=== PATIENT | male | born 1945 ===

== ENCOUNTER 2017-12-16 06:29 | Inpatient (IN) | payer MEDICARE, OTHER ==
[2017-12-16 06:44] VITALS: BMI 25.5
[2017-12-16] MEDS ORDERED: Absorbable Gelatin Sponge Size 12-7 ONE (07:07)
[2017-12-16] MEDS ORDERED: Thrombin Topical 5,000 Int Units Spray Kit ONE (07:08)
[2017-12-16] MEDS ORDERED: Lidocaine 2% w Epi 1:100,000 Inj IJ ONE (07:08)
[2017-12-16] MEDS ORDERED: Phenylephrine 10 mg/ml Inj ONE (07:11)
[2017-12-16] MEDS ORDERED: Succinylcholine 200 mg/10 ml Inj IV ONE (07:11)
[2017-12-16] MEDS ORDERED: Rocuronium 10 mg/ml (5 ml) ONE ×2 (07:11→08:44)
[2017-12-16] MEDS ORDERED: Etomidate 20 mg/10ml Inj IV ONE (07:11)
[2017-12-16] MEDS ORDERED: Lidocaine 4% (Laryng-O-Jet) Kit MM ONE (07:13)
[2017-12-16] MEDS ORDERED: Lactated Ringer's 1,000 ML IV ONE ×3 (07:23→11:00)
--- NOTE | 2017-12-16 07:28 | CP.PCM.HP ---
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 The patient c/o LBP that started spontaneously since this June 2017. Denies history of trauma and the LBP is exacerbated by movement and ambulation and associated with RLE radiculopathy from the buttock to anterior thigh as well as decreased sensation and parasthesias of that area. The patient attempted PT , accupuncture and po meds without relief. He has seen Dr. Cadena from pain management as well. 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 He denies bowel or bladder incontinence. POMAF done by Dr. Cuong Lorenzana. Present on Admission - Present on Admission Any Indicators Present on Admission: No Review of Systems - Neurological Neurological: As Per HPI Past Patient History - Past Medical History & Family History Past Medical History?: Yes - Past Social History Smoking Status: Never Smoked - CARDIAC Hx Cardiac Disorders: Yes Hx Hypertension: Yes - PULMONARY Hx Respiratory Disorders: No - NEUROLOGICAL Hx Neurological Disorder: No - HEENT Hx HEENT Problems: No - RENAL Hx Chronic Kidney Disease: No - ENDOCRINE/METABOLIC Hx Endocrine Disorders: No - HEMATOLOGICAL/ONCOLOGICAL Hx Blood Disorders: No - INTEGUMENTARY Hx Dermatological Problems: No - MUSCULOSKELETAL/RHEUMATOLOGICAL Hx Musculoskeletal Disorders: Yes Hx Arthritis: Yes - GASTROINTESTINAL Hx Gastrointestinal Disorders: No - GENITOURINARY/GYNECOLOGICAL Hx Genitourinary Disorders: No - PSYCHIATRIC Hx Psychophysiologic Disorder: No - SURGICAL HISTORY Hx Surgeries: Yes Hx Cholecystectomy: Yes - ANESTHESIA Hx Anesthesia: Yes Hx Anesthesia Reactions: No Meds Allergies/Adverse Reactions: Allergies Allergy/AdvReac Type Severity Reaction Status Date / Time No Known Allergies Allergy Verified 12/16/17 06:44 Physical Exam - Back Exam Back exam: NORMAL INSPECTION - Neurological Exam Additional comments: A&Ox3 CN intact speech appropriate ARCE RLE IP and HS: 4+/5 , rest of motor is 5/5 . Pain illicited with efforts. positive SLR on right mild decreased sensation on right anterior thigh. neg clonus Results - Vital Signs Recent Vital Signs: Last Vital Signs Temp 99.3 F 12/16/17 07:15 Pulse 73 12/16/17 07:17 Resp 20 12/16/17 07:15 BP 165/73 H 12/16/17 07:15 Pulse Ox 96 12/16/17 07:15 - Imaging and Cardiology MRI L spine Status: Image reviewed by me Assessment & Plan - Assessment and Plan (Free Text) Assessment: Lumbar spondylolithesis Plan: Images reviewed discussion with patient, explained pathology Dr. Gallagher reviewed the risks, benefits and alternatives to surgery Risks such as infection, hemorrhage, CSF leak, weakness, sensory changes, failure of surgery and /or need for further surgery explained. All questions answered, patient expressed understanding and agrees with proposed procedure. Will be admitted post op either to Dr. Lorenzana( his PCP) or Dr. Mae service.
[2017-12-16] MEDS ORDERED: Midazolam 2 MG/2 ML VIAL ONE (07:54)
[2017-12-16 08:05] LABS: HEMOGLOBIN 14.4 g/dL (12.0-18.0); MEAN CELL VOLUME 88.3 fl (80.0-94.0); MEAN CORPUSCULAR HEMOGLOBIN 29.9 pg (27.0-31.0); MEAN CORPUSCULAR HGB CONC 33.9 g/dL (33.0-37.0); RBC 4.81 Mil/uL (4.40-5.90); RED CELL DISTRIBUTION WIDTH 14.7 % (11.5-14.5); WHITE BLOOD COUNT 5.7 K/uL (4.8-10.8)
[2017-12-16] MEDS ORDERED: Lidocaine 2% w Epi 1:200,000 Pf Inj IJ ONE (08:15)
[2017-12-16] MEDS ORDERED: Dexamethasone 4 mg/1 ml ONE (08:17)
[2017-12-16] MEDS ORDERED: Bupivacaine HCl 0.25% PF (30 ml) Inj ONE (08:39)
[2017-12-16] MEDS ORDERED: Neostigmine 1:1000 (1 mg/ml) Inj ONE (08:47)
[2017-12-16] MEDS ORDERED: Thrombin Topical 5,000 Int Units Spray Kit TOP ONE ×2 (08:49→10:25)
[2017-12-16] MEDS ORDERED: HEMOSTATIC MATRIX 10 ML DIS.NEEDLE TOP ONE ×3 (08:49→10:20)
[2017-12-16] MEDS ORDERED: Absorbable Gelatin Sponge Size 12-7 TP ONE ×2 (08:50→10:20)
[2017-12-16] MEDS ORDERED: ceFAZolin 1 GM in Sodium Chloride 0.9% 100 ML IVPB SCH (09:00)
[2017-12-16] MEDS ORDERED: APROTININ/FIBRINOGEN(TISSEEL) ONE (09:30)
[2017-12-16] MEDS ORDERED: Lactated Ringer's 500 ML IV ONE (09:45)
[2017-12-16] MEDS ORDERED: ePHEDrine 50 mg/ml Inj ONE (10:05)
[2017-12-16] MEDS ORDERED: HYDROmorphone 0.5 mg/0.5 ml ISec IVP PRN (11:10)
[2017-12-16] MEDS ORDERED: Naloxone 0.4 mg/ml Inj (Adult) IVP PRN (11:11)
[2017-12-16] MEDS ORDERED: Lactated Ringer's 1,000 ML IV SCH (11:15)
--- NOTE | 2017-12-16 11:45 | PCM.SURG1 ---
Surgeon's Initial Post Op Note - Surgeon's Notes Surgeon: Rudolph Gallagher MD Chip Separator: Augustus BROWN Type of Anesthesia: General Endo Anesthesia Administered By: Sandra NEAL Pre-Operative Diagnosis: Lumbar spondylolithesis Operative Findings: degenerative changes, scoliotic, spinal canal stenosis and thecal sac compression Post-Operative Diagnosis: same Operation Performed: Bilateral L3-L4, L4-L5 laminectomy and posterior instrumented fusion Specimen/Specimens Removed: none Estimated Blood Loss: EBL {In ML}: 400 Blood Products Given: N/A Drains Used: Malik Shelby (x1 ) Post-Op Condition: Good Date of Surgery/Procedure: 12/16/17 Time of Surgery/Procedure: 11:00
--- NOTE | 2017-12-16 15:26 | CP.PCM.HP ---
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 Post-surgery this after, patient reports pain is controlled with pain medications. Denies any chest pain, dyspnea, nausea, vomiting, focal weakness, numbness or tingling of lower leg. ROS: all systems reviewed and negative except as mentioned in HPI PMHX: prediabetes, HTN, lower back pain PSHX: lap cholecystectomy, lower back surgery Social hx: Denies smoking cigarettes, drinking alcohol or using drugs. Family hx: denies Medications: Metformin 500 mg po hs, Valsartan 80 mg po, aspirin 81 mg po. Allergies: NKDA Present on Admission - Present on Admission Any Indicators Present on Admission: No Review of Systems - Review of Systems All systems: reviewed and no additional remarkable complaints except Past Patient History - Past Medical History & Family History Past Medical History?: Yes - Past Social History Smoking Status: Never Smoked - CARDIAC Hx Cardiac Disorders: Yes Hx Hypertension: Yes - PULMONARY Hx Respiratory Disorders: No - NEUROLOGICAL Hx Neurological Disorder: No - HEENT Hx HEENT Problems: No - RENAL Hx Chronic Kidney Disease: No - ENDOCRINE/METABOLIC Hx Endocrine Disorders: No - HEMATOLOGICAL/ONCOLOGICAL Hx Blood Disorders: No - INTEGUMENTARY Hx Dermatological Problems: No - MUSCULOSKELETAL/RHEUMATOLOGICAL Hx Musculoskeletal Disorders: Yes Hx Arthritis: Yes - GASTROINTESTINAL Hx Gastrointestinal Disorders: No - GENITOURINARY/GYNECOLOGICAL Hx Genitourinary Disorders: No - PSYCHIATRIC Hx Psychophysiologic Disorder: No - SURGICAL HISTORY Hx Surgeries: Yes Hx Cholecystectomy: Yes - ANESTHESIA Hx Anesthesia: Yes Hx Anesthesia Reactions: No Meds Allergies/Adverse Reactions: Allergies Allergy/AdvReac Type Severity Reaction Status Date / Time No Known Allergies Allergy Verified 12/16/17 06:44 Physical Exam - Constitutional Appears: Well, No Acute Distress - Head Exam Head Exam: ATRAUMATIC, NORMOCEPHALIC - Eye Exam Eye Exam: EOMI, Normal appearance - ENT Exam ENT Exam: Mucous Membranes Moist - Respiratory Exam Respiratory Exam: Clear to Auscultation Bilateral, NORMAL BREATHING PATTERN. absent: Rhonchi, Wheezes - Cardiovascular Exam Cardiovascular Exam: REGULAR RHYTHM, RRR, +S1, +S2 - GI/Abdominal Exam GI & Abdominal Exam: Normal Bowel Sounds, Soft. absent: Tenderness - Extremities Exam Extremities exam: Positive for: normal inspection. Negative for: calf tenderness - Neurological Exam Neurological exam: Alert, Oriented x3 - Psychiatric Exam Psychiatric exam: Normal Affect, Normal Mood - Skin Skin Exam: Normal Color, Warm Results - Vital Signs Recent Vital Signs: Last Vital Signs Temp 98.3 F 12/16/17 13:54 Pulse 70 12/16/17 13:54 Resp 18 12/16/17 13:54 BP 145/82 12/16/17 13:54 Pulse Ox 96 12/16/17 13:54 - Labs Result Diagrams: 12/16/17 07:36 Labs: Laboratory Results - last 24 hr 12/16/17 12/16/17 12/16/17 07:36 07:36 10:47 WBC 5.7 RBC 4.81 Hgb 14.4 Hct 42.5 MCV 88.3 MCH 29.9 MCHC 33.9 RDW 14.7 H Plt Count 178 Blood Type O POSITIVE Blood Type Confirm O POSITIVE Antibody Screen Negative BBK History Checked No verified bt Assessment & Plan - Assessment and Plan (Free Text) Assessment: Assessment: 72 yo male pmx of prediabetes, HTN and lower back pain had surgery of bilateral L3-L4, L4-L5 laminectomy and posterior instrumented fusion this morning. Patient is admitted for observation/monitoring after post op. Plan: Admit to Telemetry Pain management Resume BP medication (Dr. Harrington is aware of the recall and wants to continue with valsartan) Incentive spirometry advance diet as tolerated.
[2017-12-16] MEDS: ceFAZolin IV 1 gm in Dextrose 1 GM/50 ML BAG IVPB SCH (16:09)
[2017-12-16] MEDS: oxyCODONE 10 mg ER Tab (oxyCONTIN) PO SCH (18:36)
[2017-12-16] MEDS: Pantoprazole 40 mg EC Tab PO SCH (18:38)
--- NOTE | 2017-12-16 22:58 | OP ---
PROCEDURE DATE: 12/16/2017 PREOPERATIVE DIAGNOSIS: Lumbar spondylolisthesis and instability. POSTOPERATIVE DIAGNOSIS: Lumbar spondylolisthesis and instability. PROCEDURES: L3 to L5 lumbar laminectomy decompression, L3 to L5 pedicle screw fixation and instrumentation using a Spinal Elements system, L3 to L5 posterolateral fusion. SURGEON: Rudolph Gallagher MD. FIBER OPTICS ENGINEER: KEVIN Sparrow. Augustus Balbuena is a physician development assistant who helped me perform the surgery, he stayed throughout the case from the beginning to the end. DESCRIPTION OF PROCEDURE: The patient was brought to the operating room, anesthetized with general endotracheal anesthesia, and placed in a prone position on a Malik table. Care was taken to protect all the pressure points. Back of the lumbar area thoroughly prepped and draped in a sterile manner after marking the skin incisions for lumbar laminectomy and fusion. After prepping and draping the area, skin has been incised, bleeding skin has been controlled with bipolar plant operator. Using a Bovie plant operator, paraspinal muscles have been detached, attachments of spinous process and lamina of L3 to L5. Deep retractor has been applied. The patient has got significant scoliosis with exostosis of the bone and distortion of anatomy. All these exostoses have been drilled away on the facet and after identifying the landmark for the point of entry, initially a K-wire, later a drill has been used in order to enter the pedicles of L3, L4, L5 both sides. Polyaxial titanium screws of Spinal Element system have been placed. Position has been confirmed to be good with help of the fluoroscopy. Titanium rods have been placed, and cap nuts have been used in order to secure them. After that, under microscopic magnification and illumination, the spinous processes of L3, L4, L5 have been drilled and removed by using a high speed drill, the lamina of L3, L4, L5, and medial part of the facets have been drilled to actual thickness. By using a Kerrison punch, all this thinned out, bone has been removed, decompressing this area, along with removal of the ligamentum flavum which was found to be buckled and thickened and compressing. Once this has been done, the found to be expanded. After that, the lateral aspect of the facet joint and transverse process have been decorticated and demineralized bone placed in the area achieving a posterolateral fusion. After that, hemostasis was best achieved. Malik drain was placed in the wound and brought out through a separate stab neck skin incision. Muscles and fascia were closed with 1 Vicryl, subcutaneous tissue with 3-0 Vicryl, and skin with intradermal 3 Vicryl stitches. The patient tolerated the procedure. After the procedure was mobilized to the recovery room in stabilized condition. Rudolph Gallagher MD
[2017-12-17] MEDS: ceFAZolin IV 1 gm in Dextrose 1 GM/50 ML BAG IVPB SCH ×3 (00:31→16:51)
[2017-12-17 05:41] LABS: MEAN CELL VOLUME 88.9 fl (80.0-94.0); MEAN CORPUSCULAR HEMOGLOBIN 29.9 pg (27.0-31.0); MEAN CORPUSCULAR HGB CONC 33.7 g/dL (33.0-37.0); RBC 4.01 Mil/uL (4.40-5.90); RED CELL DISTRIBUTION WIDTH 14.4 % (11.5-14.5); WHITE BLOOD COUNT 8.2 K/uL (4.8-10.8)
[2017-12-17 05:44] LABS: BLOOD UREA NITROGEN 17 mg/dl (9-20); CALCIUM 8.6 mg/dL (8.4-10.2); GFR NON-AFRICAN AMERICAN > 60
[2017-12-17] MEDS ORDERED: Influenza Vaccine 60 MCG/0.5 ML SYR (3 yr & up) IM ONE (08:06)
--- NOTE | 2017-12-17 08:51 | CP.PCM.PN ---
Subjective - Date & Time of Evaluation Date of Evaluation: 12/17/17 Time of Evaluation: 07:20 - Subjective Subjective: Patient seen and examined at bedside. Pain is well controlled with IV Ofirmev, patient refusing narcotics at this time. Notes he is not experiencing numbness/tingling/pain radiating down LLE as he did preop. No acute events. Large amount of drainage from drain overnight. Denies CP/SOB/dizziness/fever. Objective - Vital Signs/Intake and Output Vital Signs (last 24 hours): Temp Pulse Resp BP Pulse Ox 98.2 F 61 20 129/72 98 12/17/17 08:33 12/17/17 08:33 12/17/17 08:33 12/17/17 08:33 12/17/17 08:33 Intake and Output: 12/17/17 12/17/17 06:59 18:59 Intake Total 1720 Output Total 300 Balance 1420 - Medications Medications: Current Medications Bacitracin (Bacitracin Oint) 1 applic TOP BID [facility] Cyclobenzaprine HCl (Flexeril) 5 mg PO Q8 [facility] Last Admin: 12/17/17 00:33 Dose: Not Given Hydromorphone HCl (Dilaudid 0.2 Mg/Ml Hall Monitor) 0 mg IV PRN PRN; Protocol PRN Reason: Pain, moderate (4-7) Last Admin: 12/16/17 12:50 Dose: 0 mg Cefazolin Sodium/Dextrose (Ancef Iv 1 Gm Duplex) 1 gm in 50 mls @ 50 mls/hr IVPB Q8 [facility]; Protocol Stop: 12/17/17 17:59 Last Admin: 12/17/17 00:31 Dose: 50 mls/hr Ibuprofen (Motrin Tab) 600 mg PO Q6 PRN PRN Reason: Pain, severe (8-10) Lidocaine (Lidoderm) 1 ea TD DAILY [facility] Naloxone HCl (Narcan) 0.1 mg IVP Q2M PRN PRN Reason: Shortness of Breath Ondansetron HCl (Zofran Inj) 4 mg IVP Q8 PRN PRN Reason: Nausea/Vomiting Last Admin: 12/16/17 16:36 Dose: 4 mg Oxycodone HCl (Oxycontin Extended Release Tab) 10 mg PO QPM [facility] Stop: 12/19/17 18:01 Last Admin: 12/16/17 18:36 Dose: Not Given Pantoprazole Sodium (Protonix Ec Tab) 40 mg PO DAILY [facility] Last Admin: 12/16/17 18:38 Dose: 40 mg Polyethylene Glycol (Miralax) 17 gm PO FRI [facility] Sennosides (Senokot Tab) 17.2 mg PO HS [facility] Last Admin: 12/17/17 00:44 Dose: Not Given Valsartan (Diovan) 80 mg PO DAILY [facility] - Labs Labs: 12/17/17 05:18 12/17/17 05:18 - Back Exam Additional comments: Dressings CDI BERNIE drain in place with 50 cc bloody drainage (200cc overnight, 100cc yesterday) sensation intact SP/DP/TN b/l motor intact EHL/FHL/TA/G b/l pedal pulses intact b/l comps soft NT b/l Assessment and Plan (1) HNP (herniated nucleus pulposus), lumbar Assessment & Plan: POD#1 s/p L3-L5 laminotomy with instrumental fusion doing well -recommend bedrest at this time until drainage subsides -will monitor drainage and remove when significantly decreased, does not look like CSF -hold PT/OT at this time, resume depending on drainage -pain control -above d/w Dr. Gallagher in agreement Status: Acute
[2017-12-17] MEDS: Bacitracin OINT 15GM TOP SCH ×2 (10:11→16:51)
[2017-12-17] MEDS: Pantoprazole 40 mg EC Tab PO SCH (10:15)
[2017-12-17] MEDS: Lidocaine 5% Patch TD SCH (10:24)
--- NOTE | 2017-12-17 11:57 | CP.PCM.PN ---
Subjective - Date & Time of Evaluation Date of Evaluation: 12/17/17 Time of Evaluation: 12:55 - Subjective Subjective: Patient seen and examined today. Patient is ambulating w/o dizziness. Patient was not able to tolerate morphine yesterday and changed to different pain meds. Patient reports some back pain. +BERNIE draining. No other complaints. Objective - Vital Signs/Intake and Output Vital Signs (last 24 hours): Temp Pulse Resp BP Pulse Ox 98.2 F 61 20 129/72 98 12/17/17 08:33 12/17/17 08:33 12/17/17 08:33 12/17/17 08:33 12/17/17 08:33 Intake and Output: 12/17/17 12/17/17 06:59 18:59 Intake Total 1720 Output Total 300 Balance 1420 - Medications Medications: Current Medications Bacitracin (Bacitracin Oint) 1 applic TOP BID [facility] Last Admin: 12/17/17 10:11 Dose: 1 applic Cyclobenzaprine HCl (Flexeril) 5 mg PO Q8 [facility] Last Admin: 12/17/17 10:12 Dose: 5 mg Cefazolin Sodium/Dextrose (Ancef Iv 1 Gm Duplex) 1 gm in 50 mls @ 50 mls/hr IVPB Q8 [facility]; Protocol Stop: 12/17/17 17:59 Last Admin: 12/17/17 10:10 Dose: 50 mls/hr Ibuprofen (Motrin Tab) 600 mg PO Q6 PRN PRN Reason: Pain, severe (8-10) Lidocaine (Lidoderm) 1 ea TD DAILY [facility] Last Admin: 12/17/17 10:24 Dose: 1 ea Naloxone HCl (Narcan) 0.1 mg IVP Q2M PRN PRN Reason: Shortness of Breath Ondansetron HCl (Zofran Inj) 4 mg IVP Q8 PRN PRN Reason: Nausea/Vomiting Last Admin: 12/16/17 16:36 Dose: 4 mg Oxycodone HCl (Oxycontin Extended Release Tab) 10 mg PO QPM [facility] Stop: 12/19/17 18:01 Last Admin: 12/16/17 18:36 Dose: Not Given Pantoprazole Sodium (Protonix Ec Tab) 40 mg PO DAILY [facility] Last Admin: 12/17/17 10:15 Dose: 40 mg Polyethylene Glycol (Miralax) 17 gm PO FRI [facility] Sennosides (Senokot Tab) 17.2 mg PO HS [facility] Last Admin: 12/17/17 00:44 Dose: Not Given Valsartan (Diovan) 80 mg PO DAILY [facility] - Labs Labs: 12/17/17 05:18 12/17/17 05:18 - Additional Findings Additional findings: - Constitutional Appears: Well, No Acute Distress - Head Exam Head Exam: ATRAUMATIC, NORMOCEPHALIC - Eye Exam Eye Exam: EOMI, Normal appearance - ENT Exam ENT Exam: Mucous Membranes Moist - Respiratory Exam Respiratory Exam: Clear to Auscultation Bilateral, NORMAL BREATHING PATTERN. absent: Rhonchi, Wheezes - Cardiovascular Exam Cardiovascular Exam: REGULAR RHYTHM, RRR, +S1, +S2 - GI/Abdominal Exam GI & Abdominal Exam: Normal Bowel Sounds, Soft. absent: Tenderness - Extremities Exam Extremities exam: Positive for: normal inspection. Negative for: calf tenderness - Neurological Exam Neurological exam: Alert, Oriented x3 - Psychiatric Exam Psychiatric exam: Normal Affect, Normal Mood - Skin Skin Exam: Normal Color, Warm Assessment and Plan - Assessment and Plan (Free Text) Assessment: Assessment: 72 yo male pmx of prediabetes, HTN and lower back pain had surgery of bilateral L3-L4, L4-L5 laminectomy and posterior instrumented fusion on 12/16/17. Patient is admitted yesterday for post op monitoring. Plan: Pain management Change valsartan to Losartan 50 mg po daily. Monitor BERNIE drainage d/w Dr. Carmelita Samuels, pgy-2
[2017-12-17] MEDS ORDERED: oxyCODONE 10 mg Immediate Release Tab PO PRN (12:16)
--- NOTE | 2017-12-17 15:17 | RAD ---
Date of service: 12/16/2017 PROCEDURE: Fluoroscopy up to 1 hr. HISTORY: PLIF COMPARISON: None TECHNIQUE: Standard protocol for this study/examination. FINDINGS: Total fluoroscopic time (continuous mode) utilized during the procedure 72.7 (seconds). Total exam DLP: 40.0 (mGy). IMPRESSION: Less than 1 hr fluoroscopic assistance provided during performance of the procedure.
[2017-12-17] MEDS: oxyCODONE 10 mg ER Tab (oxyCONTIN) PO SCH (17:14)
[2017-12-18 05:53] LABS: HEMOGLOBIN 12.3 g/dL (12.0-18.0); MEAN CELL VOLUME 89.2 fl (80.0-94.0); MEAN CORPUSCULAR HGB CONC 33.6 g/dL (33.0-37.0); RBC 4.09 Mil/uL (4.40-5.90); RED CELL DISTRIBUTION WIDTH 14.4 % (11.5-14.5); WHITE BLOOD COUNT 8.9 K/uL (4.8-10.8)
[2017-12-18 06:29] LABS: BLOOD UREA NITROGEN 17 mg/dl (9-20); GFR NON-AFRICAN AMERICAN > 60
[2017-12-18 06:30] LABS: CALCIUM 8.8 mg/dL (8.4-10.2)
--- NOTE | 2017-12-18 08:46 | CP.PCM.PN ---
Subjective - Date & Time of Evaluation Date of Evaluation: 12/18/17 Time of Evaluation: 08:00 - Subjective Subjective: Patient states pain is controlled. He is anxious to get out of bed. Denies CP/SOB/dizziness/numbness/tingling. Objective - Vital Signs/Intake and Output Vital Signs (last 24 hours): Temp Pulse Resp BP Pulse Ox 98.2 F 72 20 124/78 95 12/18/17 05:00 12/18/17 05:00 12/18/17 05:00 12/18/17 05:00 12/18/17 05:00 - Medications Medications: Current Medications Acetaminophen (Tylenol 325mg Tab) 975 mg PO Q8 [facility] Last Admin: 12/18/17 00:47 Dose: 975 mg Bacitracin (Bacitracin Oint) 1 applic TOP BID [facility] Last Admin: 12/17/17 16:51 Dose: 1 applic Cyclobenzaprine HCl (Flexeril) 5 mg PO Q8 [facility] Last Admin: 12/18/17 00:48 Dose: Not Given Ibuprofen (Motrin Tab) 600 mg PO Q6 PRN PRN Reason: Pain, severe (8-10) Lidocaine (Lidoderm) 1 ea TD DAILY [facility] Last Admin: 12/17/17 10:24 Dose: 1 ea Losartan Potassium (Cozaar) 50 mg PO DAILY [facility] Morphine Sulfate (Morphine) 2 mg IVP Q4 PRN PRN Reason: Pain, severe (8-10) Naloxone HCl (Narcan) 0.1 mg IVP Q2M PRN PRN Reason: Shortness of Breath Ondansetron HCl (Zofran Inj) 4 mg IVP Q8 PRN PRN Reason: Nausea/Vomiting Last Admin: 12/16/17 16:36 Dose: 4 mg Oxycodone HCl (Oxycontin Extended Release Tab) 10 mg PO QPM [facility] Stop: 12/19/17 18:01 Last Admin: 12/17/17 17:14 Dose: Not Given Oxycodone HCl (Oxycodone Immediate Release Tab) 10 mg PO Q4 PRN PRN Reason: Pain, moderate (4-7) Pantoprazole Sodium (Protonix Ec Tab) 40 mg PO DAILY [facility] Last Admin: 12/17/17 10:15 Dose: 40 mg Polyethylene Glycol (Miralax) 17 gm PO FRI [facility] Sennosides (Senokot Tab) 17.2 mg PO HS [facility] Last Admin: 12/17/17 22:02 Dose: 17.2 mg - Labs Labs: 12/18/17 04:25 12/18/17 04:25 - Back Exam Additional comments: Dressings intact, dry BERNIE drain in place with 60 overnight, 130cc yesterday, 190 total 24 hours sensation intact SP/DP/TN b/l motor intact EHL/FHL/TA/G b/l calves soft NT neg homans Assessment and Plan (1) Lumbar spondylolysis Assessment & Plan: d/w Dr. Gallagher, drain left intact will restart PT today and monitor drainage with activity plan d/c home tomorrow if drainage subsides and BERNIE can be pulled Status: Acute
--- NOTE | 2017-12-18 08:49 | CP.PCM.PN ---
Subjective - Date & Time of Evaluation Date of Evaluation: 12/18/17 Time of Evaluation: 11:35 - Subjective Subjective: Patient seen and examined with Dr. Pollard. Patient is ambulating w/o dizziness. Patient reports some back pain. +BERNIE still draining. No other complaints. Objective - Vital Signs/Intake and Output Vital Signs (last 24 hours): Temp Pulse Resp BP Pulse Ox 98.2 F 67 18 134/76 96 12/18/17 08:47 12/18/17 08:47 12/18/17 08:47 12/18/17 08:47 12/18/17 08:47 - Medications Medications: Current Medications Acetaminophen (Tylenol 325mg Tab) 975 mg PO Q8 [facility] Last Admin: 12/18/17 00:47 Dose: 975 mg Bacitracin (Bacitracin Oint) 1 applic TOP BID [facility] Last Admin: 12/17/17 16:51 Dose: 1 applic Cyclobenzaprine HCl (Flexeril) 5 mg PO Q8 [facility] Last Admin: 12/18/17 00:48 Dose: Not Given Ibuprofen (Motrin Tab) 600 mg PO Q6 PRN PRN Reason: Pain, severe (8-10) Lidocaine (Lidoderm) 1 ea TD DAILY [facility] Last Admin: 12/17/17 10:24 Dose: 1 ea Losartan Potassium (Cozaar) 50 mg PO DAILY [facility] Morphine Sulfate (Morphine) 2 mg IVP Q4 PRN PRN Reason: Pain, severe (8-10) Naloxone HCl (Narcan) 0.1 mg IVP Q2M PRN PRN Reason: Shortness of Breath Ondansetron HCl (Zofran Inj) 4 mg IVP Q8 PRN PRN Reason: Nausea/Vomiting Last Admin: 12/16/17 16:36 Dose: 4 mg Oxycodone HCl (Oxycontin Extended Release Tab) 10 mg PO QPM [facility] Stop: 12/19/17 18:01 Last Admin: 12/17/17 17:14 Dose: Not Given Oxycodone HCl (Oxycodone Immediate Release Tab) 10 mg PO Q4 PRN PRN Reason: Pain, moderate (4-7) Pantoprazole Sodium (Protonix Ec Tab) 40 mg PO DAILY [facility] Last Admin: 12/17/17 10:15 Dose: 40 mg Polyethylene Glycol (Miralax) 17 gm PO FRI [facility] Sennosides (Senokot Tab) 17.2 mg PO HS [facility] Last Admin: 12/17/17 22:02 Dose: 17.2 mg - Labs Labs: 12/18/17 04:25 12/18/17 04:25 - Additional Findings Additional findings: - Constitutional Appears: Well, No Acute Distress - Head Exam Head Exam: ATRAUMATIC, NORMOCEPHALIC - Eye Exam Eye Exam: EOMI, Normal appearance - ENT Exam ENT Exam: Mucous Membranes Moist - Respiratory Exam Respiratory Exam: Clear to Auscultation Bilateral, NORMAL BREATHING PATTERN. absent: Rhonchi, Wheezes - Cardiovascular Exam Cardiovascular Exam: REGULAR RHYTHM, RRR, +S1, +S2 - GI/Abdominal Exam GI & Abdominal Exam: Normal Bowel Sounds, Soft. absent: Tenderness - Extremities Exam Extremities exam: Positive for: normal inspection. Negative for: calf tenderness - Neurological Exam Neurological exam: Alert, Oriented x3 - Psychiatric Exam Psychiatric exam: Normal Affect, Normal Mood - Skin Skin Exam: Normal Color, Warm Assessment and Plan - Assessment and Plan (Free Text) Assessment: 72 yo male pmx of prediabetes, HTN and lower back pain had surgery of bilateral L3-L4, L4-L5 laminectomy and posterior instrumented fusion on 12/16/17. Patient is admitted for post op monitoring. Plan: Pain management c/w Losartan 50 mg po daily. Monitor BERNIE drainage PT today Anticipate discharge tomorrow d/w Dr. Atul Samuels, pgy-2
[2017-12-18] MEDS: Lidocaine 5% Patch TD SCH (08:53)
[2017-12-18] MEDS: Bacitracin OINT 15GM TOP SCH ×2 (08:55→18:22)
[2017-12-18] MEDS: Pantoprazole 40 mg EC Tab PO SCH (08:58)
[2017-12-18] MEDS ORDERED: POLYETHYLENE GLYCOL 3350 17 GM/Dose PACKET PO SCH (09:00)
[2017-12-19] MEDS: Bacitracin OINT 15GM TOP SCH ×2 (09:46→17:34)
[2017-12-19] MEDS: Lidocaine 5% Patch TD SCH (09:47)
[2017-12-19] MEDS: Pantoprazole 40 mg EC Tab PO SCH (09:50)
[2017-12-20] MEDS: Bacitracin OINT 15GM TOP SCH ×2 (09:19→17:03)
[2017-12-20] MEDS: Lidocaine 5% Patch TD SCH (09:20)
[2017-12-20] MEDS: Pantoprazole 40 mg EC Tab PO SCH (09:22)
--- NOTE | 2017-12-20 15:54 | RAD ---
Date of service: 12/20/2017 PROCEDURE: Left Knee Radiographs. HISTORY: Pain. COMPARISON: None. FINDINGS: BONES: Four views of the left knee were performed for left knee pain and edema. Severe tricompartmental degenerative changes are noted. No fracture is seen. No lytic process is noted. Very small joint effusion is not excluded. No loose body is seen. Tibial plateaus are intact. JOINTS: Severe tricompartmental degenerative joint disease. JOINT EFFUSION: Possible small effusion OTHER FINDINGS: None. IMPRESSION: Severe tricompartmental degenerative changes. No plain film evidence of fracture or infection.
--- NOTE | 2017-12-20 15:54 | CP.PCM.PN ---
Subjective - Date & Time of Evaluation Date of Evaluation: 12/19/17 Time of Evaluation: 11:00 - Subjective Subjective: patient seen and examined at bedside. BERNIE drain still in place, continues to drain. followed by neurosurgery. denies pain of back however complaining of pain in left knee that has worsened. no other complaints at this time. Objective - Vital Signs/Intake and Output Vital Signs (last 24 hours): Temp Pulse Resp BP Pulse Ox 97.9 F 87 20 133/84 98 12/20/17 12:51 12/20/17 12:51 12/20/17 12:51 12/20/17 12:51 12/20/17 12:51 Intake and Output: 12/20/17 12/20/17 06:59 18:59 Output Total 25 Balance -25 - Medications Medications: Current Medications Acetaminophen (Tylenol 325mg Tab) 975 mg PO Q8 [facility] Last Admin: 12/20/17 09:22 Dose: 975 mg Bacitracin (Bacitracin Oint) 1 applic TOP BID [facility] Last Admin: 12/20/17 09:19 Dose: 1 applic Cyclobenzaprine HCl (Flexeril) 5 mg PO Q8 [facility] Last Admin: 12/20/17 09:19 Dose: 5 mg Ibuprofen (Motrin Tab) 600 mg PO Q6 PRN PRN Reason: Pain, severe (8-10) Last Admin: 12/20/17 14:58 Dose: 600 mg Lidocaine (Lidoderm) 1 ea TD DAILY [facility] Last Admin: 12/20/17 09:20 Dose: 1 ea Losartan Potassium (Cozaar) 50 mg PO DAILY [facility] Last Admin: 12/20/17 09:18 Dose: 50 mg Naloxone HCl (Narcan) 0.1 mg IVP Q2M PRN PRN Reason: Shortness of Breath Ondansetron HCl (Zofran Inj) 4 mg IVP Q8 PRN PRN Reason: Nausea/Vomiting Last Admin: 12/16/17 16:36 Dose: 4 mg Oxycodone HCl (Oxycodone Immediate Release Tab) 10 mg PO Q4 PRN PRN Reason: Pain, moderate (4-7) Pantoprazole Sodium (Protonix Ec Tab) 40 mg PO DAILY [facility] Last Admin: 12/20/17 09:22 Dose: 40 mg Polyethylene Glycol (Miralax) 17 gm PO FRI [facility] Last Admin: 12/18/17 08:54 Dose: 17 gm Sennosides (Senokot Tab) 17.2 mg PO HS [facility] Last Admin: 12/19/17 23:03 Dose: Not Given - Labs Labs: 12/18/17 04:25 12/18/17 04:25 - Constitutional Appears: Well, Non-toxic, No Acute Distress - Head Exam Head Exam: NORMAL INSPECTION - Eye Exam Eye Exam: Normal appearance - Neck Exam Neck Exam: Normal Inspection - Respiratory Exam Respiratory Exam: Clear to Ausculation Bilateral, NORMAL BREATHING PATTERN - Cardiovascular Exam Cardiovascular Exam: REGULAR RHYTHM, +S1, +S2 - GI/Abdominal Exam GI & Abdominal Exam: Soft. absent: Tenderness - Back Exam Back Exam: NORMAL INSPECTION - Neurological Exam Neurological Exam: Alert, Awake, Oriented x3 - Psychiatric Exam Psychiatric exam: Normal Affect, Normal Mood - Skin Skin Exam: Dry, Normal Color, Warm - Additional Findings Additional findings: left knee with effusion and crepitus Assessment and Plan - Assessment and Plan (Free Text) Assessment: 72 yo male pmx of prediabetes, HTN and lower back pain had surgery of bilateral L3-L4, L4-L5 laminectomy and posterior instrumented fusion on 12/16/17. Plan: Pain management c/w Losartan 50 mg po daily. Monitor BERNIE drainage, continues to be more than 30cc continue with PT will continue to monitor knee pain, likely OA
--- NOTE | 2017-12-20 15:54 | CP.PCM.PN ---
Subjective - Date & Time of Evaluation Date of Evaluation: 12/20/17 Time of Evaluation: 11:00 - Subjective Subjective: patient seen and examined at bedside. BERNIE drain still in place, continues to drain, less than yesterday. followed by neurosurgery. denies pain of back. continues with pain in left knee. no other complaints at this time. Objective - Vital Signs/Intake and Output Vital Signs (last 24 hours): Temp Pulse Resp BP Pulse Ox 97.9 F 87 20 133/84 98 12/20/17 12:51 12/20/17 12:51 12/20/17 12:51 12/20/17 12:51 12/20/17 12:51 Intake and Output: 12/20/17 12/20/17 06:59 18:59 Output Total 25 Balance -25 - Medications Medications: Current Medications Acetaminophen (Tylenol 325mg Tab) 975 mg PO Q8 [facility] Last Admin: 12/20/17 09:22 Dose: 975 mg Bacitracin (Bacitracin Oint) 1 applic TOP BID [facility] Last Admin: 12/20/17 09:19 Dose: 1 applic Cyclobenzaprine HCl (Flexeril) 5 mg PO Q8 [facility] Last Admin: 12/20/17 09:19 Dose: 5 mg Ibuprofen (Motrin Tab) 600 mg PO Q6 PRN PRN Reason: Pain, severe (8-10) Last Admin: 12/20/17 14:58 Dose: 600 mg Lidocaine (Lidoderm) 1 ea TD DAILY [facility] Last Admin: 12/20/17 09:20 Dose: 1 ea Losartan Potassium (Cozaar) 50 mg PO DAILY [facility] Last Admin: 12/20/17 09:18 Dose: 50 mg Naloxone HCl (Narcan) 0.1 mg IVP Q2M PRN PRN Reason: Shortness of Breath Ondansetron HCl (Zofran Inj) 4 mg IVP Q8 PRN PRN Reason: Nausea/Vomiting Last Admin: 12/16/17 16:36 Dose: 4 mg Oxycodone HCl (Oxycodone Immediate Release Tab) 10 mg PO Q4 PRN PRN Reason: Pain, moderate (4-7) Pantoprazole Sodium (Protonix Ec Tab) 40 mg PO DAILY [facility] Last Admin: 12/20/17 09:22 Dose: 40 mg Polyethylene Glycol (Miralax) 17 gm PO FRI [facility] Last Admin: 12/18/17 08:54 Dose: 17 gm Sennosides (Senokot Tab) 17.2 mg PO HS [facility] Last Admin: 12/19/17 23:03 Dose: Not Given - Labs Labs: 12/18/17 04:25 12/18/17 04:25 - Additional Findings Additional findings: - Constitutional Appears: Well, Non-toxic, No Acute Distress - Head Exam Head Exam: NORMAL INSPECTION - Eye Exam Eye Exam: Normal appearance - Neck Exam Neck Exam: Normal Inspection - Respiratory Exam Respiratory Exam: Clear to Ausculation Bilateral, NORMAL BREATHING PATTERN - Cardiovascular Exam Cardiovascular Exam: REGULAR RHYTHM, +S1, +S2 - GI/Abdominal Exam GI & Abdominal Exam: Soft. absent: Tenderness - Back Exam Back Exam: NORMAL INSPECTION - Neurological Exam Neurological Exam: Alert, Awake, Oriented x3 - Psychiatric Exam Psychiatric exam: Normal Affect, Normal Mood - Skin Skin Exam: Dry, Normal Color, Warm - Additional Findings Additional findings: left knee with effusion and crepitus Assessment and Plan - Assessment and Plan (Free Text) Assessment: 72 yo male pmx of prediabetes, HTN and lower back pain had surgery of bilateral L3-L4, L4-L5 laminectomy and posterior instrumented fusion on 12/16/17. Plan: Pain management c/w Losartan 50 mg po daily. Monitor BERNIE drainage, improved, likely can be removed in AM continue with PT Ortho consulted, appreciate recommendations pending knee xray and MRI
[2017-12-21 09:26] VITALS: RESP 20; O2SAT 99
[2017-12-21] MEDS: Bacitracin OINT 15GM TOP SCH ×2 (09:29→16:58)
[2017-12-21] MEDS: Lidocaine 5% Patch TD SCH (09:30)
[2017-12-21] MEDS: Pantoprazole 40 mg EC Tab PO SCH (09:32)
--- NOTE | 2017-12-21 11:06 | CP.PCM.PN ---
Subjective - Date & Time of Evaluation Date of Evaluation: 12/21/17 Time of Evaluation: 08:00 - Subjective Subjective: Patient seen and examined at bedside comfortable. Pain is well controlled. Complaining of severe left knee pain since yesterday without recent injury. No acute events overnight. Denies CP/SOB/dizziness/fever. Objective - Vital Signs/Intake and Output Vital Signs (last 24 hours): Temp Pulse Resp BP Pulse Ox 98.8 F 79 20 170/69 H 99 12/21/17 09:35 12/21/17 09:31 12/21/17 09:26 12/21/17 09:31 12/21/17 09:26 - Medications Medications: Current Medications Acetaminophen (Tylenol 325mg Tab) 650 mg PO Q6 PRN PRN Reason: Pain, moderate (4-7) Last Admin: 12/21/17 09:35 Dose: 650 mg Bacitracin (Bacitracin Oint) 1 applic TOP BID [facility] Last Admin: 12/21/17 09:29 Dose: 1 applic Ibuprofen (Motrin Tab) 600 mg PO Q6 PRN PRN Reason: Pain, severe (8-10) Last Admin: 12/20/17 14:58 Dose: 600 mg Lidocaine (Lidoderm) 1 ea TD DAILY [facility] Last Admin: 12/21/17 09:30 Dose: 1 ea Losartan Potassium (Cozaar) 50 mg PO DAILY [facility] Last Admin: 12/21/17 09:31 Dose: 50 mg Naloxone HCl (Narcan) 0.1 mg IVP Q2M PRN PRN Reason: Shortness of Breath Ondansetron HCl (Zofran Inj) 4 mg IVP Q8 PRN PRN Reason: Nausea/Vomiting Last Admin: 12/16/17 16:36 Dose: 4 mg Oxycodone HCl (Oxycodone Immediate Release Tab) 10 mg PO Q4 PRN PRN Reason: Pain, moderate (4-7) Pantoprazole Sodium (Protonix Ec Tab) 40 mg PO DAILY [facility] Last Admin: 12/21/17 09:32 Dose: 40 mg Polyethylene Glycol (Miralax) 17 gm PO FRI [facility] Last Admin: 12/18/17 08:54 Dose: 17 gm Sennosides (Senokot Tab) 17.2 mg PO HS [facility] Last Admin: 12/20/17 21:13 Dose: 17.2 mg - Labs Labs: 12/18/17 04:25 12/18/17 04:25 - Extremities Exam Additional comments: Dressings CDI BERNIE drain in place with minimal bloody drainage (25cc overnight) sensation intact SP/DP/TN b/l motor intact EHL/FHL/TA/G b/l pedal pulses intact b/l comps soft NT b/l Assessment and Plan (1) HNP (herniated nucleus pulposus), lumbar Assessment & Plan: POD#5 s/p L3-L5 laminotomy with instrumental fusion doing well -drain removed today -PT/OT -neurosurgically cleared for discharge -f/u in office next Thursday -above d/w Dr. Gallagher in agreement Status: Acute
--- NOTE | 2017-12-21 11:06 | CP.PCM.CON ---
History of Present Illness - History of Present Illness History of Present Illness: Orthopedic consult: Dr. Mei Patient is a 72 y/o male with PMH of HTN admitted following an L3-L5 laminotomy and instrumental fusion by Dr. Gallagher. The patient reports experiencing severe right knee pain yesterday without injury or trauma. The patient has history of knee osteoarthritis which has been management by conservative means. Currently his pain is sharp in quality, constant in frequency and located diffuse anteriorly. The pain is worsened by WB activities and improves with rest. There is associated swelling and stiffness. He does not usually ambulate with a walking aid. He denies any radiation of pain/numbness/tingling. He denies CP/SOB/N/V/D/fever/melena/dysuria. Review of Systems - Review of Systems All systems: reviewed and no additional remarkable complaints except Review of Systems: as per HPI Past Patient History - Past Medical History & Family History Past Medical History?: Yes Past Family History: Reviewed and not pertinent - Past Social History Smoking Status: Never Smoked Alcohol: None Drugs: Denies - CARDIAC Hx Hypertension: Yes - PULMONARY Hx Respiratory Disorders: No - NEUROLOGICAL Hx Neurological Disorder: No - HEENT Hx HEENT Problems: No - RENAL Hx Chronic Kidney Disease: No - ENDOCRINE/METABOLIC Hx Endocrine Disorders: No - HEMATOLOGICAL/ONCOLOGICAL Hx Blood Disorders: No - INTEGUMENTARY Hx Dermatological Problems: No - MUSCULOSKELETAL/RHEUMATOLOGICAL Hx Arthritis: Yes - GASTROINTESTINAL Hx Gastrointestinal Disorders: No - GENITOURINARY/GYNECOLOGICAL Hx Genitourinary Disorders: No - PSYCHIATRIC Hx Psychophysiologic Disorder: No - SURGICAL HISTORY Hx Surgeries: Yes Hx Cholecystectomy: Yes - ANESTHESIA Hx Anesthesia: Yes Hx Anesthesia Reactions: No Meds Allergies/Adverse Reactions: Allergies Allergy/AdvReac Type Severity Reaction Status Date / Time No Known Allergies Allergy Verified 12/16/17 06:44 - Medications Medications: Current Medications Acetaminophen (Tylenol 325mg Tab) 650 mg PO Q6 PRN PRN Reason: Pain, moderate (4-7) Last Admin: 12/21/17 09:35 Dose: 650 mg Bacitracin (Bacitracin Oint) 1 applic TOP BID [facility] Last Admin: 12/21/17 09:29 Dose: 1 applic Ibuprofen (Motrin Tab) 600 mg PO Q6 PRN PRN Reason: Pain, severe (8-10) Last Admin: 12/20/17 14:58 Dose: 600 mg Lidocaine (Lidoderm) 1 ea TD DAILY [facility] Last Admin: 12/21/17 09:30 Dose: 1 ea Losartan Potassium (Cozaar) 50 mg PO DAILY [facility] Last Admin: 12/21/17 09:31 Dose: 50 mg Naloxone HCl (Narcan) 0.1 mg IVP Q2M PRN PRN Reason: Shortness of Breath Ondansetron HCl (Zofran Inj) 4 mg IVP Q8 PRN PRN Reason: Nausea/Vomiting Last Admin: 12/16/17 16:36 Dose: 4 mg Oxycodone HCl (Oxycodone Immediate Release Tab) 10 mg PO Q4 PRN PRN Reason: Pain, moderate (4-7) Pantoprazole Sodium (Protonix Ec Tab) 40 mg PO DAILY [facility] Last Admin: 12/21/17 09:32 Dose: 40 mg Polyethylene Glycol (Miralax) 17 gm PO FRI [facility] Last Admin: 12/18/17 08:54 Dose: 17 gm Sennosides (Senokot Tab) 17.2 mg PO HS [facility] Last Admin: 12/20/17 21:13 Dose: 17.2 mg Physical Exam - Constitutional Appears: Well, No Acute Distress - Head Exam Head Exam: ATRAUMATIC, NORMOCEPHALIC - Eye Exam Eye Exam: EOMI, Normal appearance, PERRL - ENT Exam ENT Exam: Mucous Membranes Moist - Respiratory Exam Respiratory Exam: NORMAL BREATHING PATTERN - GI/Abdominal Exam GI & Abdominal Exam: Soft. absent: Tenderness - Extremities Exam Additional comments: L knee: mild swelling, trace effusion diffuse medial and lateral tenderness moderate varus alignment ROM 0-130 Sensation intact SP/DP/TN motor intact EHL/FHL/TA/G pedal pulses intact comp soft NT R knee: no swelling, no effusion moderate varus alignment ROM 0-130 Sensation intact SP/DP/TN motor intact EHL/FHL/TA/G pedal pulses intact comp soft NT - Neurological Exam Neurological exam: Alert, Oriented x3 - Psychiatric Exam Psychiatric exam: Normal Affect, Normal Mood - Skin Skin Exam: Normal Color, Warm Results - Vital Signs Recent Vital Signs: Last Vital Signs Temp 98.8 F 12/21/17 09:35 Pulse 79 12/21/17 09:31 Resp 20 12/21/17 09:26 BP 170/69 H 12/21/17 09:31 Pulse Ox 99 1008/18 09:26 - Labs Result Diagrams: 12/18/17 04:25 12/18/17 04:25 Assessment & Plan (1) HNP (herniated nucleus pulposus), lumbar Status: Acute (2) Osteoarthritis of left knee Assessment and Plan: -MRI L knee w/out contrast -conservative measures for now with PT and NSAID's -may require intra-articular injection of steroid/Hyluronic acid in office -follow up in office within 7-10 days -above d/w Dr. Mei in agreement Status: Acute - Date & Time Date: 12/21/17 Time: 08:00 Radiology Interpretation - Notes: Notes:: Accession No. : [id number] Patient Name / ID : BOBBI WHITAKER / [id number] Exam Date : 12/20/2017 15:24:07 ( Approved ) Study Comment : Sex / Age : M / 72Y Creator : morgan tanner Dictator : Verónica Reyes MD Registered Dental Assistant : Licensed [employer] : Verónica Reyes MD Approver2 : Report Date : 12/20/2017 15:35:07 My Comment : Date of service: 12/20/2017 PROCEDURE: Left Knee Radiographs. HISTORY: Pain. COMPARISON: None. FINDINGS: BONES: Four views of the left knee were performed for left knee pain and edema. Severe tricompartmental degenerative changes are noted. No fracture is seen. No lytic process is noted. Very small joint effusion is not excluded. No loose body is seen. Tibial plateaus are intact. JOINTS: Severe tricompartmental degenerative joint disease. JOINT EFFUSION: Possible small effusion OTHER FINDINGS: None. IMPRESSION: Severe tricompartmental degenerative changes. No plain film evidence of fracture or infection.
--- NOTE | 2017-12-21 12:47 | CP.PCM.DIS ---
Provider - Provider Date of Admission: 12/16/17 07:39 Attending physician: Jarrett Mae MD Primary care physician: Cuong Lorenzana MD Time Spent in preparation of Discharge (in minutes): 30 Hospital Course - Lab Results Lab Results: Most Recent Lab Values WBC 8.9 K/uL (4.8-10.8) 12/18/17 04:25 RBC 4.09 Mil/uL (4.40-5.90) L 12/18/17 04:25 Hgb 12.3 g/dL (12.0-18.0) 12/18/17 04:25 Hct 36.5 % (35.0-51.0) 12/18/17 04:25 MCV 89.2 fl (80.0-94.0) 12/18/17 04:25 MCH 30.0 pg (27.0-31.0) 12/18/17 04:25 MCHC 33.6 g/dL (33.0-37.0) 12/18/17 04:25 RDW 14.4 % (11.5-14.5) 12/18/17 04:25 Plt Count 143 K/uL (130-400) 12/18/17 04:25 Sodium 140 mmol/l (132-148) 12/18/17 04:25 Potassium 3.7 MMOL/L (3.6-5.0) 12/18/17 04:25 Chloride 103 mmol/L (98-107) 12/18/17 04:25 Carbon Dioxide 33 mmol/L (22-30) H 12/18/17 04:25 Anion Gap 8 (10-20) L 12/18/17 04:25 BUN 17 mg/dl (9-20) 12/18/17 04:25 Creatinine 0.8 mg/dl (0.8-1.5) 12/18/17 04:25 Est GFR ( Amer) > 60 12/18/17 04:25 Est GFR (Non-Af Amer) > 60 12/18/17 04:25 Random Glucose 122 mg/dL (75-110) H 12/18/17 04:25 Calcium 8.8 mg/dL (8.4-10.2) 12/18/17 04:25 Blood Type O POSITIVE 12/16/17 07:36 Blood Type Confirm O POSITIVE 12/16/17 10:47 Antibody Screen Negative 12/16/17 07:36 BBK History Checked No verified bt 12/16/17 07:36 Discharge Exam - Head Exam Head Exam: ATRAUMATIC, NORMOCEPHALIC Discharge Plan - Follow Up Plan Condition: GOOD Disposition: HOME/ ROUTINE Referrals: Cuong Lorenzana MD [Primary Care Provider] -
[2017-12-21 15:59] VITALS: BP 166/93; PULSE 88; TEMP 98.5
[2017-12-21] MEDS ORDERED: Pneumococcal 23-Valent Vaccine IM ONE (16:30)
--- NOTE | 2017-12-21 17:34 | MRI ---
Date of service: 12/21/2017 PROCEDURE: MRI Left Knee HISTORY: Pain. COMPARISON: Left knee radiographs 12/20/2017. TECHNIQUE: Multiecho multiplanar sequences were performed through the left knee. FINDINGS: ANTERIOR CRUCIATE LIGAMENT:: Gross mucoid degeneration of the ACL is identified. Full-thickness tear appreciable. POSTERIOR CRUCIATE LIGAMENT:: Intact without acute tear. MEDIAL MENISCUS:: Degenerative intrameniscal signal changes are identified without acute articular surface tear. The meniscus body has migrated medially with osteophytic overgrowth. LATERAL MENISCUS:: Complex superior and inferior articular tear ducts are seen affecting the posterior horn with the anterior horn and body intact. MEDIAL COLLATERAL LIGAMENT:: Slightly bowed medially by the school and osteophyte degenerative changes but otherwise intact. LATERAL COLLATERAL LIGAMENT COMPLEX:: Intact without acute tear. QUADRICEPS TENDON:: Intact without acute tear. PATELLAR TENDON:: Intact. CARTILAGE:: Intact without acute tear. Advanced chondromalacia seen in all 3 joint compartments without definitive cartilaginous defect appreciated. JOINT FLUID:: Limited medial lateral femoral tibial compartment joint effusion is seen as well as mild suprapatellar bursa effusion. OSSEOUS STRUCTURES:: No fracture or bone contusion is identified. Extensive osteophytosis identified in the patellofemoral, medial and lateral femorotibial joint compartments compatible with advanced tricompartment osteoarthritis. OTHER FINDINGS: None. IMPRESSION: Advanced tricompartmental osteoarthritis without fracture, subluxation or dislocation. Prominent mucoid degeneration of the anterior cruciate ligament is identified. Complex posterior horn meniscal tear lateral meniscus.
== END 2017-12-21 18:10 | disposition home or self-care (01) | DRG 460 ==
LOC: H.OPSURG 06:29 → H.TEL 07:39
PROVIDERS: ADMIT Family Medicine; ATTEND Family Medicine
PROC: 0SG10K1 Fusion of 2 or more Lumbar Vertebral Joints with Nonautologous Tissue Substitute, Posterior Approach, Posterior Column, Open Approach (ICD-10-PCS; principal; 2017-12-16 07:45)
DX: M43.16 Spondylolisthesis, lumbar region (principal); I10 Essential (primary) hypertension; M17.12 Unilateral primary osteoarthritis, left knee; R73.03 Prediabetes; M53.2X6 Spinal instabilities, lumbar region; M41.9 Scoliosis, unspecified